=== PATIENT | male | born 1965 | race Caucasian/White ===

== ENCOUNTER 2018-05-03 13:27 | Inpatient (IN) | payer OTHER ==
[~2018-05-03] VITALS: Ht 180.3 cm; Wt 77.6 kg
[2018-05-03 16:30] VITALS: BP 132/82
--- NOTE | 2018-05-03 16:30 | NUR ---
Pre-admission Pre-admission assessment performed in the intake department of [facility]. Pt is A&O and ambulatory with a steady gait. Pt does not appear intoxicated, is cooperative, and answers questions appropriately. Vitals: B/P 132/82, HR 74, RR 16, O2 sat 98%, T 98.0, pain 0/10. 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 Pt is stable and admission is to continue on the [facility].
[2018-05-03 16:34] LABS: *AMPHETAMINE, URINE POSITIVE (NEGATIVE); *BARBITURATE, URINE NEGATIVE (NEGATIVE); *CANNABINOID, URINE POSITIVE (NEGATIVE); *COCCAINE, URINE NEGATIVE (NEGATIVE); *OPIATE, URINE NEGATIVE (NEGATIVE); *PHENCYCLIDINE SCREEN,URINE NEGATIVE (NEGATIVE)
[2018-05-03] MEDS ORDERED: CLON0.5T12 PO (17:05)
[2018-05-03] MEDS ORDERED: ELVI1TAB3 PO (17:05)
[2018-05-03] MEDS ORDERED: VALA100026 PO (17:05)
[2018-05-03] MEDS ORDERED: LISI10TA5 PO (17:05)
[2018-05-03] MEDS ORDERED: MAG HYDROX/AL HYDROX/SIMETH 30 ML LIQUID UDC PO PRN (17:45)
[2018-05-03] MEDS ORDERED: DICYCLOMINE HCL 20 MG TABLET PO PRN (17:45)
[2018-05-03] MEDS ORDERED: ONDANSETRON ODT 4 MG TAB.RAPDIS SL PRN (17:45)
[2018-05-03] MEDS ORDERED: ACETAMINOPHEN 325 MG TABLET PO PRN (17:45)
[2018-05-03] MEDS ORDERED: MAGNESIUM HYDROXIDE 30 ML LIQUID UDC PO PRN (17:45)
[2018-05-03] MEDS ORDERED: METHOCARBAMOL 750 MG TABLET PO PRN (17:45)
[2018-05-03] MEDS ORDERED: ONDANSETRON 4 MG/2 ML VIAL IM PRN (17:45)
[2018-05-03] MEDS ORDERED: BUPRENORPHINE HCL 2 MG TAB.SUBL SL PRN (17:45)
[2018-05-03] MEDS ORDERED: LORAZEPAM 1 MG TABLET PO PRN ×2 (17:45)
[2018-05-03] MEDS ORDERED: CLONIDINE HCL 0.1 MG TABLET PO PRN (17:45)
[2018-05-03] MEDS ORDERED: diphenhydrAMINE 50 MG CAPSULE PO PRN (17:45)
[2018-05-03] MEDS ORDERED: HYDROXYZINE PAMOATE 25 MG CAPSULE PO PRN (17:45)
[2018-05-03] MEDS ORDERED: LOPERAMIDE HCL 2 MG CAPSULE PO PRN ×2 (17:45)
[2018-05-03 18:02] LABS: BASOPHILS % (AUTO) 0.8 % (0.0-2.0); EOSINOPHILS # (AUTO) 0.1 K/uL (0.0-0.7); EOSINOPHILS % (AUTO) 1.4 % (0.0-7.0); HEMOGLOBIN 14.5 g/dL (12.5-16.3); LYMPHOCYTES # (AUTO) 2.8 K/uL (20.0-40.0); LYMPHOCYTES % (AUTO) 44.7 % (20.5-51.5); MEAN CORPUSCULAR HEMOGLOBIN 30.7 uug (23.8-33.4); MEAN CORPUSCULAR HGB CONC 34 g/dL (32.5-36.3); MEAN CORPUSCULAR VOLUME 91.1 fL (73.0-96.2); MONOCYTES # (AUTO) 0.5 K/uL (2.0-10.0); MONOCYTES % (AUTO) 8.6 % (0.0-11.0); NEUTROPHILS # (AUTO) 2.8 K/uL (1.8-8.9); NEUTROPHILS % (AUTO) 44.5 % (38.5-71.5); PLATELET COUNT (AUTO) 252 K/uL (152-348); RED BLOOD CELL COUNT(AUTO) 4.72 MIL/uL (4.06-5.63); WHITE BLOOD COUNT (AUTO) 6.3 K/uL (3.6-10.2)
[2018-05-03 18:36] LABS: ETHANOL < 3 MG/DL (0-0)
[2018-05-03 18:40] LABS: ALANINE AMINOTRANSFERASE 29 U/L (16-63); ALKALINE PHOSPHATASE 81 U/L (50-136); ASPARTATE AMINOTRANSFERASE 18 U/L (15-37); BILIRUBIN,TOTAL 0.6 mg/dL (0.2-1.0); CARBON DIOXIDE 31 mmol/L (21-32); CHLORIDE 101 mmol/L (98-107); CREATININE 1.3 mg/dL (0.6-1.3); GLUCOSE 77 mg/dL (74-106); MAGNESIUM 1.9 mg/dL (1.8-2.4); POTASSIUM 4.3 mmol/L (3.5-5.1); TOTAL PROTEIN, SERUM 8.7 g/dL (6.4-8.2); UREA NITROGEN, BLOOD 16 mg/dL (7-18)
--- NOTE | 2018-05-03 19:15 | NUR ---
ADMISSION NOTE Pt is a 52 yr old male, AA&Ox4. Pt is presenting himself to [facility] for Klonopin, OxyContin, Percocet, meth and marijuana use. Pt was up on the unit at 1702. Pt is noted with anxiety m/b difficulty staying still. Skin is intact, warm and moist to touch. Facial redness is noted. Lung sounds are clear bilaterally. Pt states he has allergies to raw vegetables. Pt verbalizes of having PMH of HIV, HTN, Anxiety, Scoliosis, and Herpes Simplex 1. Home medication was reconciled. Pt denies any Hx of SI/HI, seizures, 5150, or withdrawal induced delirium or overdose. Pt states his PCP is Niya Travis in [place], [place]. SUBSTANCE ABUSE: 1 Klonopin: Pt states of being prescribed Klonopin 0.5mg PO daily 15 years ago for anxiety. Pt states of taking 0.5mg PO a day 3-4x a week. Pt states he would take it to help with sleep or for anxiety. Pt states last use was on 05/03/18 at 0900, pt consumed 0.5mg PO. 2. OxyContin: Pt states he has been using OxyContin for 10 years intermittently when he has it available. Pt states he would use 10mg PO daily for 40 days. Last use was on 05/01/18, pt states of consuming 10mg PO in the evening. 3. Percocet: Pt states he has been using Percocet for 10 years intermittently when he has it available. Pt states he was using 5mg PO daily for 6 months. pt states last use was "more than 2 months ago" and states of taking 5mg PO. 4. Meth - Pt states of first using meth socially for 1.5 years. pt states it became daily 6 months ago. Pt verbalizes of smoking 0.25g daily. Last use was on 05/02/18, pt states of smoking 0.25g at 2100. 5. Marijuana - Pt states of buy gummy edibles from [employer] 2 weeks ago and consumed 0.5g 4x within the 2 weeks. Last use was on 05/01/18, pt stated of taking 0.5g of the gummy edible. Pt states of this is his first time in treatment and verbalizes "I never tried to get sober" Pt states he began using substances to "numb the pain" emotional, family issues and anxiety. Pt states he wants to become sober because he was "getting out of control and hanging with the sleazy people". Pt states being intoxicated would cause his to have a cloudy judgement which lead him to have impulsive behavior. Pt states due to unprotected sex, he contracted HIV. Pt states, "I need to stop taking these drugs". Pt states he is unsure what symptoms he would fell when withdrawing. Pt states he usually would feel anxious and agitated when he is sober. COWS score and CIWA score was deferred. Pt denies w/d symptoms at this time. Dr. Quiroz was notified of new admit with new orders for PRN Ativan and PRN Subutex for s/s of w/d. Pt was educated on medication regimen. Pt was able to verbalize understanding. Pt is on fall and seizure precautions. Call light is within reach. Endorsed to bundles hanger nurse to continue with care.
--- NOTE | 2018-05-03 19:30 | NUR ---
Start of Shift Patient Received. Per endorsement, patient was admitted today 05/03/18 for his Opiate and benzo withdrawal. He is currently receiving PRN medications for any increased signs and symptoms of withdrawal. No PRN medications administered. Patient is requesting for medication for increased feelings of constipation and is requesting for PRN Miralax. CIWA and COWS deferred due to patient denying any signs and symptoms of withdrawal. Upon rounds patient is noted in his bed, awake, alert and verbally responsive. breathing even and non labored. Patient is requesting for medication for constipation and and pain medication for toothache. patient continues to deny signs and symptoms of withdrawal and states "i dont feel anything that you guys are asking me. Im almost afraid to think Im going to start feeling those symptoms in the morning." Educated and encouraged patient if any feelings of discomfort to notify staff. Patient verbalized understanding. Will administer medications accordingly.
[2018-05-03 20:02] VITALS: BP 120/77
[2018-05-03] MEDS: MIRALAX 17 GM POWD.PACK PO PRN (20:04)
[2018-05-03] MEDS: IBUPROFEN 600 MG TABLET PO PRN (20:07)
--- NOTE | 2018-05-03 20:10 | NUR ---
PRN medication Administration Patient is requesting PRN Miralax for increased feelings of constipation and pain medication for pain 6/10 due to toothache. PRN Miralax and Motrin administered. Will continue to monitor.
--- NOTE | 2018-05-03 21:10 | NUR ---
PRN Medication Reassessment Patient is noted in bed with eyes closed. Breathing even and non labored. No signs of facial grimacing noted. PRN Motrin noted to be effective. Will continue to monitor.
[2018-05-03] MEDS ORDERED: PATIENT MAY USE OWN MED- MD OK PO SCH (22:00)
[2018-05-04 00:23] VITALS: BP 100/64
[2018-05-04 04:18] VITALS: BP 103/55
--- NOTE | 2018-05-04 04:19 | NUR ---
COWS and CIWA Patient is noted in bed with eyes closed. Breathing even and non labored. Upon entering room patient is noted to be awakened to verbal stimuli. explained to patient vitals were ordered. Vitals rendered. Patient noted to easily fall back to sleep with no complications. COWS and CIWA not able to be completed as per order. Will continue to monitor.
--- NOTE | 2018-05-04 06:55 | NUR ---
End of Shift Patient is noted in bed with eyes closed. Breathing even and non labored. Patient continues on PRN medications for increased signs and symptom of withdrawal. He received PRN medication for increased pain 6/10 due to toothache. Patient also received PRN Miralax for increased feelings of constipation. Will endorse to morning shift to follow up. Last noted CIWA 1 and COWS 0. Patient noted to sleep a total of 8 hours. All needs attended to promptly. Will endorse to continue plan of care as ordered.
--- NOTE | 2018-05-04 07:30 | NUR ---
START OF SHIFT Pt is a 52 yr old male, AA&Ox4. Pt was admitted on 05/03/18 for Benzo/Opiate withdrawal and is on PRN's for s/s of withdrawal. Received report from fun house attendant nurse. Pt received Motrin PRN and Miralax PRN during the night. Pt denies having a BM during the night and is requesting MOM. Pt is noted with anxiety m/b difficultly staying still. Pt states of having difficulty sleeping. Last COWS score was 1 and CIWA score was 1 during the night. Pt slept for 8 hrs. Safety precautions observed. Call light is within reach. Will continue to monitor.
[2018-05-04 08:00] VITALS: BP 116/74
--- NOTE | 2018-05-04 08:00 | NUR ---
COWS 6, CIWA 5 Pt is noted wtih anxiety m/b difficulty staying still, sweats and enlarged pupils. Pt states of being able to cope with anxiety level. Pt states, "I just feel bored". Pt was encouraged to attend group therapy at 1100. Will continue to monitor.
[2018-05-04] MEDS ORDERED: TUBERCULIN,PURIF.PROT.DERIV. 5 TU/0.1 ML TEST ID ONE (09:00)
[2018-05-04] MEDS: LISINOPRIL 10 MG TABLET PO SCH (09:35)
[2018-05-04] MEDS: MULTIVITAMINS,THERAPEUTIC TABLET PO SCH (09:35)
[2018-05-04] MEDS: VALACYCLOVIR 1 GM PO SCH ×2 (09:35→20:31)
[2018-05-04] MEDS: GENVOYA PO SCH (09:35)
[2018-05-04] MEDS: MIRALAX 17 GM POWD.PACK PO PRN (10:50)
--- NOTE | 2018-05-04 10:56 | NUR ---
PRN GIVEN Pt c/o constipation and states last BM was 2 days ago. Pt received Miralax PRN on 05/03/18 at night. Medication was ineffective. Pt was given another dose of Miralax 17gm PO PRN at 1050 mixed with Prune juice. Medication babak well. Will continue to monitor.
[2018-05-04 12:00] VITALS: BP 133/84
[2018-05-04] MEDS: IBUPROFEN 600 MG TABLET PO PRN (13:56)
--- NOTE | 2018-05-04 13:56 | NUR ---
PRN GIVEN Pt is c/o tooth ache 02/11. Motrin 600mg PO PRN was given as ordered. Encouraged increase fluid intake. Will continue to monitor.
--- NOTE | 2018-05-04 14:56 | NUR ---
PRN RE-ASSESSMENT Motrin PRN was effective. Pt denies any tooth ache at this time. Will continue to monitor.
[2018-05-04 16:00] VITALS: BP_SYST 108; BP_SYST 118; BP_DIAS 61; BP_DIAS 73
--- NOTE | 2018-05-04 17:56 | NUR ---
COMMUNICATION Pt is c/o constipation. Miralax PRN was ineffective and pt states, "I just want to go". Reported to Dr. Quiroz with new order for Magnesium Citrate 296ml PO x1. New order was noted and carried out. Will continue to f/u.
[2018-05-04] MEDS ORDERED: MAGNESIUM CITRATE 296 ML BOTTLE PO ONE (18:00)
--- NOTE | 2018-05-04 18:59 | NUR ---
END OF SHIFT Pt is a 52 yr old male, AA&Ox4. Pt has been cooperative with medication regimen and plan of care. Pt was encouraged to attend group therapy but he refused to attend. Pt states, Im zoe go to plenty of group sessions during rehab. Pt was c/o anxiety, stress and constipation. Pt was given Miralax 17gm with prune juice in the afternoon. Medication was ineffective. Report to Dr. Quiroz and received a new order for Magnesium Citrate 296ml PO x1 for constipation, medication was administered at 1806. Pt denies any BM. Pt was encouraged increase fluid intake for hydration. Last COWS score was 3 and CIWA score was 4 at 1600. Endorsed to shiftman nurse to continue to monitor.
--- NOTE | 2018-05-04 19:30 | NUR ---
Start of shift note Received report from day shift Nurse. Patient is a 52 year old male admitted for Benzo/Opiate withdrawal. Patient was under observation and PRN Ativan and Subutex. Patient is medically cleared to be discharge tomorrow. Patient was given PRN MIralax and Magnesium Citrate, will follow up for result. Last COWS 3 and CIWA 4. Patient in the room. Alert and oriented x 4. Respiration even and unlabored. Patient presents with flat affect, depressed mood, anxiety and abdominal cramping. Encourage fluids. Safety measures in place. Call light in reach. Will continue to monitor
[2018-05-04 20:00] VITALS: BP 124/78
--- NOTE | 2018-05-04 20:00 | NUR ---
COWS and CIWA assessment Patient presents with flat affect, depressed mood, anxiety and abdominal cramping. COWS 3 and CIWA 2.
[2018-05-05 04:00] VITALS: BP 120/75
--- NOTE | 2018-05-05 04:00 | NUR ---
COWS and CIWA deferred Patient lying in bed with eyes closed. Respiration even and unlabored. Will continue to monitor.
[2018-05-05 06:06] LABS: HEPATITIS B SURFACE AG Negative (Negative)
--- NOTE | 2018-05-05 07:13 | NUR ---
End of shift note Patient slept 7 hours. Fluid intake 1,296 ml. Voided x 3. BM x 1. Patient was under observation and PRN Ativan and Subutex. Patient is medically cleared to be discharge today. Patient presented with flat affect, depressed mood, anxiety and abdominal cramping . Patient in the room most of the shift. Patient withdrawn and tends to isolate self. Patient had bowel movement during shift. Magnesium citrate effective. Safety measures in place. Call light in reach. Will continue to monitor. Last COWS 3 and CIWA 2.
--- NOTE | 2018-05-05 07:42 | NUR ---
BEGINNING OF SHIFT Endorsement report received from shift coordinator nurse, all pertinent information was discussed. Opiate withdrawal, as admitting diagnoses. Patient is scheduled to be discharged this morning, was under close observation during stay. Patient also with substance use of methamphetamine and marijuana. As per shift coordinator patient received no PRN medications. Last COW: 3, CIWA: 2. Patient slept for 7 hours. Skin is intact, patient received awake, alert and oriented x4, educated regarding plan of care for the day, and will educate regarding all discharge instructions. Safety measures in place. call light with in reach, will continue to monitor.
[2018-05-05 08:04] VITALS: BP 121/72
[2018-05-05] MEDS: GENVOYA PO SCH (08:41)
[2018-05-05 08:42] VITALS: BP 121/72
[2018-05-05] MEDS: LISINOPRIL 10 MG TABLET PO SCH (08:42)
[2018-05-05] MEDS: MULTIVITAMINS,THERAPEUTIC TABLET PO SCH (08:42)
[2018-05-05] MEDS: VALACYCLOVIR 1 GM PO SCH (08:48)
[2018-05-05] MEDS: IBUPROFEN 600 MG TABLET PO PRN (08:48)
--- NOTE | 2018-05-05 09:27 | NUR ---
DISCHARGE Patient discharged off the unit at 0927, prior to discharge patient was administered all scheduled medications as ordered. patient also received PRN Motrin at 0848 for toothache. Patient was educated and provided with teaching regarding all discharge instructions with good verbal understanding. Patients discharge instructions and home mediations were placed in patients personal duffel bag. Noted self motivated towards sobriety. Patient off the unit in stable condition at 0927.
== END 2018-05-05 09:27 | disposition other institution (70) | DRG 897 ==
LOC: SRC 16:09
PROVIDERS: ADMIT Family Medicine Addiction Medicine; ATTEND Family Medicine Addiction Medicine
PROC: HZ2ZZZZ Detoxification Services for Substance Abuse Treatment (ICD-10-PCS; principal; 2018-05-03)
DX: F11.23 Opioid dependence with withdrawal (principal); F15.20 Other stimulant dependence, uncomplicated; F13.239 Sedative, hypnotic or anxiolytic dependence with withdrawal, unspecified; F41.9 Anxiety disorder, unspecified
CPT/HCPCS: 36415; 80307; 80324; 80349; 83735; 85025; 86592; 86705; 86803; 87340; 87806; G0480; Q0163